=== PATIENT | male | born 1990 | race African-American/Black ===

== ENCOUNTER 2022-07-01 06:05 | Outpatient (REF) | payer OTHER, SELFPAY ==
--- NOTE | ~2022-07-01 | XR_ITS ---
EXAMINATION: XR SHOULDER, RIGHT CLINICAL INFORMATION: Pain. COMPARISON: None TECHNIQUE: AP external rotation, Grashey and scapula Y views of the right shoulder are submitted. FINDINGS: The bones and soft tissues are normal. No fracture. Glenohumeral and acromioclavicular alignment is anatomic with normal joint space. No abnormal soft tissue calcifications. XR/XR shoulder RT min 2V IMPRESSION: Normal right shoulder.
== END 2022-07-01 06:06 | disposition home or self-care (01) ==
LOC: HO.HOSX 06:05
PROVIDERS: Visit Provider Physician Assistant
DX: M25.311 Other instability, right shoulder (principal); M25.511 Pain in right shoulder
CPT/HCPCS: 73030; 99202

== ENCOUNTER 2022-07-23 09:41 | Outpatient (REF) | payer OTHER, SELFPAY ==
[2022-07-23 11:42] LABS: Appearance Urine Clear; Color Urine Yellow; Glucose Urine UA Negative (Negative); Leukocyte Esterase Urine Negative (Negative); Nitrite Urine Negative (Negative); Specific Gravity - Urine >= 1.030 (1.005-1.025); Urine Blood Negative (Negative); Urine Ketones Negative (Negative); Urine Protein Negative (Neg-Trace)
[2022-07-23 12:11] LABS: Alanine Aminotransferase 52 U/L (0-40); Albumin Level 4.2 g/dL (3.5-5.0); Alkaline Phosphatase 92 U/L (39-117); Anion Gap 11 (12-20); Aspartate Amino Transferase 33 U/L (5-37); Bilirubin Total 0.3 mg/dL (0.0-1.0); Blood Urea Nitrogen 16 mg/dL (9-16); Calcium 9.4 mg/dL (8.4-10.2); Carbon Dioxide 27 mmol/L (22-29); Chloride 108 mmol/L (96-108); Cholesterol 202 mg/dL; Estimated Glomerular Filt Rate > 60; Glucose Fasting 91 mg/dL (60-99); HDL Cholesterol 46 mg/dL; LDL Cholesterol Calculated 136 mg/dl; Potassium 4.7 mmol/L (3.3-5.1); Sodium 141 mmol/L (135-145); Total Protein 6.9 g/dL (6.5-8.0); Triglycerides 102 mg/dL
[2022-07-23 12:27] LABS: HBc Num1 0.06 S/CO (0.00-0.79); HBsAGNum1 0.25 S/CO (0.00-0.99); HIV AB/AG Nonreactive (Nonreactive); HIV Num 1 0.08 S/CO (0.00-0.99); Hepatitis B Core Antibody Nonreactive (Nonreactive); Hepatitis B Surface Antigen Negative (Negative); ~HepC Num1 0.07 S/CO (0.00-0.79); ~Hepatitis B Surface Antibody REACTIVE (Nonreactive); ~Hepatitis C Antibody Nonreactive (Nonreactive)
[2022-07-23 12:34] LABS: TSH reflex Free T4 0.69 uIU/mL (0.32-4.0)
[2022-07-24 08:29] LABS: Syphilis Screen Nonreactive (Nonreactive)
== END 2022-07-23 09:42 | disposition home or self-care (01) ==
LOC: HO.HMGCLDS 09:41
PROVIDERS: PCP Family Medicine; Visit Provider Family Medicine
DX: Z00.00 Encounter for general adult medical examination without abnormal findings (principal); Z11.3 Encounter for screening for infections with a predominantly sexual mode of transmission
CPT/HCPCS: 36415; 80053; 80061; 81003; 84443; 86704; 86706; 86780; 86803; 87340; 87389

== ENCOUNTER 2022-07-25 13:06 | Outpatient (REF) | payer OTHER, SELFPAY ==
--- NOTE | ~2022-07-25 | MR_ITS ---
EXAMINATION: MR SHOULDER WITH CONTRAST, RIGHT CLINICAL INFORMATION: Right shoulder pain. COMPARISON: X-rays of the right shoulder June 2022. TECHNIQUE: MRI of the shoulder was performed following the intra-articular administration of a dilute gadolinium-containing solution (arthrogram) on a high-field scanner. FINDINGS: Exam is slightly limited by image degrading motion artifact on multiple series. Repeat series were attempted without improvement. ROTATOR CUFF: Intact. No muscle atrophy or fatty infiltration. BICEPS: Normal. CORACOACROMIAL ARCH: The undersurface of the acromion is curved with no subacromial spur. Minimal arthrosis of the acromioclavicular joint. BURSA: Normal. LABRUM/CAPSULE: Normal. GLENOHUMERAL JOINT/MARROW: There is an eccentric defect/concavity along the posterior superior lateral aspect of the head tuberosity junction compatible with an old impaction fracture/Hill-Sachs lesion. This measures 14 mm transverse and 12 mm craniocaudal and up to 4 mm in depth. No surrounding edema. MR/MR shoulder RT w con IMPRESSION: 1. Gruver-Sachs lesion compatible with an old anterior shoulder dislocation which has been reduced. The anterior inferior labral ligamentous complex appears intact. 2. Minimal arthrosis of the acromioclavicular joint. 3. Rotator cuff intact.
--- NOTE | ~2022-07-25 | FL_ITS ---
EXAMINATION: XR ARTHROGRAM SHOULDER, RIGHT CLINICAL INFORMATION: Previous history of shoulder dislocation 2 years ago followed by constant right shoulder pain. COMPARISON: None TECHNIQUE: Following explaining fluoroscopy-guided right shoulder injection of gadolinium for MRI procedure, benefits and risk, a written consent was obtained. Patient was placed supine on fluoroscopy table and marker was placed along the right shoulder joint for needle insertion. The area marked was cleaned and draped in usual sterile manner. A 22-gauge spinal needle was then inserted from the skin into the mid glenohumeral joint space and 2 mL of nonionic contrast was injected. A single image was obtained for documentation. Subsequently 0.1 mL of gadolinium was dilated with 10 mL of saline and 1% lidocaine combination was injected and needle withdrawn. Postprocedure needle was withdrawn and complete hemostasis achieved at puncture site with sterile Band-Aid applied. Patient tolerated procedure extremely well. FINDINGS: There are no fractures or dislocations. No lytic or sclerotic process. There is mild cephalic migration of humeral head in relation to the acromion. There is iodinated contrast opacifying the glenohumeral joint space. FLUOROSCOPY TIME: 0.8 minutes. DOSE AREA PRODUCT: 3.679 uGy-m2 (microgray-meter squared) FL/FL arthrogram shoulder RT IMPRESSION: Successful fluoroscopically-guided right shoulder gadolinium injection for MRI. Patient was sent to MRI for further imaging.
== END 2022-07-25 13:07 | disposition home or self-care (01) ==
LOC: HO.XRAY 13:06
PROVIDERS: PCP Family Medicine; Visit Provider Physician Assistant
DX: M25.311 Other instability, right shoulder (principal)
CPT/HCPCS: 23350; 73040; 73222; A9585

== ENCOUNTER → 2022-07-29 13:44 | Outpatient (BNVA) | payer OTHER, SELFPAY | PROVIDERS: Visit Provider Physician Assistant | DX: M25.311 Other instability, right shoulder (principal) | CPT/HCPCS: 99212 ==

== ENCOUNTER 2022-07-30 11:00 | Outpatient (RCR) | payer OTHER, SELFPAY ==
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
== END 2022-10-17 07:51 | disposition home or self-care (01) ==
LOC: HO.PTWFD 11:00
PROVIDERS: PCP Family Medicine; Visit Provider Physician Assistant
DX: M25.511 Pain in right shoulder (principal)
CPT/HCPCS: 97110; 97161; 97535

== ENCOUNTER → 2023-01-09 14:05 | Outpatient (BNVA) | payer OTHER, SELFPAY | PROVIDERS: PCP Family Medicine; Visit Provider Physician Assistant | DX: M25.311 Other instability, right shoulder (principal) | CPT/HCPCS: 99212 ==

== ENCOUNTER 2023-01-09 14:37 | Emergency (ER) | payer OTHER, SELFPAY ==
[2023-01-09 14:47] VITALS: BP 143/87; PULSE 66; RESP 18; TEMP 36.8; O2SAT 99; BMI 29.4
--- NOTE | 2023-01-09 14:51 | ED_ITS ---
HPI - Ear Problem General Chief complaint: Ear Problems Stated complaint: l ear pain Time Seen by Provider: 01/09/23 14:51 Source: patient Mode of arrival: ambulatory Limitations: no limitations History of Present Illness HPI Narrative: 32-year-old male history of eustachian tube dysfunction, GERD presenting to the emergency complaints of severe left-sided ear pain patient reports that he recently got back from [facility] where he was swimming frequently, and when he got the plane his left ear popped, and since then he has been having severe pain. Denies tinnitus, fevers, chills, headache, vision changes, dizziness, weakness, nausea, vomiting, sore throat, upper respiratory symptoms. Related Data Previous Rx's Medication Instructions Recorded fluticasone propionate 50 1 spray intranasal Q12H 30 days 08/06/22 mcg/actuation nasal #16 grams spray,suspension (Flonase Allergy Relief) omeprazole 20 mg capsule,delayed 20 mg PO DAILY 30 days #30 caps 08/06/22 release ciprofloxacin 0.3 %-dexamethasone 4 drp otic (ears) BID 7 days #7.5 01/09/23 0.1 % ear drops,suspension mL (Ciprodex) doxycycline hyclate 100 mg capsule 100 mg PO BID 10 days #20 caps 01/09/23 Allergies Allergy/AdvReac Type Severity Reaction Status Date / Time Penicillins Allergy Mild Hives Verified 01/09/23 14:11 Review of Systems Review of Systems: Constitutional : No Weight loss, No Fever, No Chills, No Fatigue, No Malaise ENT/Mouth : No sore throat, No Rhinorrhea, + ear pain Eyes: No Eye Pain, No Swelling, No Redness Cardiovascular : No Chest Pain, No SOB, No Dyspnea on Exertion, No Orthopnea, No Edema, No Palpitations Respiratory : No Cough, No Sputum, No Wheezing Gastrointestinal : No Nausea, No Vomiting, No Diarrhea, No Constipation, No abdominal Pain, No Hematochezia, No Melena Genitourinary : No Dysuria, No Urinary Frequency, No Hematuria, Musculoskeletal : No joint pain, No Myalgias, No Joint Swelling Skin : No Skin Lesions, No rash Neuro : No Weakness, No Numbness, No Dizziness, No Headache Psych : No Anxiety/Panic, No Depression All other systems reviewed and are negative Yes all other systems are reviewed and are negative [facility] Past Medical History Attestation statement: The following information was validated with the patient. Source: old records reviewed and nursing notes reviewed Family History Family History Maternal Grandmother Mental health disorder Social History Social History Housing: House Patient Tobacco Use Status: Never used Tobacco Tobacco use type: Cigarette e-Cigarette/Vaping Use: Never Used service: No Current occupational status: employed Cognitive needs: No Hearing needs: No Vision needs: No Physical Exam Vital Signs: Vital Signs: Last Vital Signs Temp 98.2 F 01/09/23 14:47 Pulse 66 01/09/23 14:47 Resp 18 01/09/23 14:47 BP 143/87 H 01/09/23 14:47 Pulse Ox 99 01/09/23 14:47 O2 Del Method Room Air 01/09/23 14:47 BMI result Body Mass Index 29.4 vss Appearance: Alert.? Oriented X3.? No acute distress.? Head: Normocephalic, atraumatic, no step-offs or deformities Eyes: Pupils equal, round and reactive to light.? ENT: Pharynx normal.? Left ear with erythematous and edematous ear canal, difficult to visualize the tympanic membrane, decent amount of cerumen in left ear. pain with manipulation of left ear externally. No mastoid tenderness. Normal right ear. Neck: Normal inspection.? Neck supple.? CVS: Normal heart rate and rhythm.? Pulses normal.? Respiratory: No respiratory distress.? Breath sounds normal.? Abdomen: Soft and nontender.? Skin: Skin warm and dry.? Normal skin color.? Normal skin turgor.? Extremities: No lower extremity edema.? No calf ttp. 5/5 strength to bilateral upper and lower extremities Back: No midline tenderness, no C-spine tenderness, full range of motion, no CVA tenderness bilaterally Neuro: Oriented X 3.? No motor deficit.? No sensory deficit. CN 2-12 intact Medical Decision Making Medical Decision Making [facility] Narrative: 1454 32-year-old male presents with left ear pain reports recent travel in swimming. Physical exam significant for Left ear with erythematous and edematous ear canal, difficult to visualize the tympanic membrane, decent amount of cerumen in left ear. pain with manipulation of left ear externally. No mastoid tenderness. Normal right ear. concerns for otitis media, otitis externa and ruptured tympanic membrane. Difficult to visualize ruptured tympanic membrane however will err on the side of caution and treat, patient does have a penicillin allergy therefore will treat with doxycycline as this is 2nd line treatment for ruptured tympanic membrane. Will give Ciprodex drops due to the inflammation visualized in the ear canal. No signs of malignant otitis or mastoiditis. Plan discharge patient home from triage will send him home on doxycycline and Ciprodex drops. Differential Diagnosis Differential Diagnoses: The differential diagnosis associated with the presentation includes concerns for otitis media, otitis externa and ruptured tympanic membrane. Difficult to visualize ruptured tympanic membrane however will err on the side of caution and treat, patient does have a penicillin allergy therefore will treat with doxycycline as this is 2nd line treatment for ruptured tympanic membrane. Will give Ciprodex drops due to the inflammation visualized in the ear canal. No signs of malignant otitis or mastoiditis. Admission/Observation Consideration of admission/observation: Escalation of care including admission/observation considered not indicated Core Measures AMI core measures followed: Yes Measure exclusions: not indicated Critical Care Time Critical Care Time Critical Care Time: No Discharge Plan Discharge Clinical Impression: Otitis media, Otitis externa Patient Disposition: Home, Self-Care Instructions: Ear Infection (ED) Additional Instructions: Take your medications as prescribed. If you were prescribed antibiotics today, it is important that you take your medication to their entirety, do not skip any doses, do not finish them early. Follow-up with your primary care provider this week. Follow-up with ears Nose and Throat Return to the emergency department with new or worsening symptoms. Such as fevers, chills, chest pain, shortness of breath, nausea, vomiting, dizziness, headache, vision changes, lethargy In case of emergency call 911 Prescriptions: New doxycycline hyclate 100 mg capsule 100 mg PO BID 10 Days Qty: 20 0RF ciprofloxacin-dexamethasone [Ciprodex] 0.3-0.1 % drops,suspension 4 drp otic (ears) BID 7 Days Qty: 7.5 0RF No Action fluticasone propionate [Flonase Allergy Relief] 50 mcg/actuation spray,suspension 1 spray intranasal Q12H 30 Days Qty: 16 3RF Rx Instructions: administer into each nostril omeprazole 20 mg capsule,delayed release(DR/EC) 20 mg PO DAILY 30 Days Qty: 30 2RF Referrals: Herbie Braswell MD [Primary Care Provider] - 2 days Herminio Verde [Physician] - 2 days Stand Alone Forms: Work/School Release Interventions: ED Discharge Assessment Last Done: 01/09/23 15:00 Discharge Date/Time: 01/09/23 15:01
== END 2023-01-09 15:01 | disposition home or self-care (01) ==
LOC: HO.ED 15:00
PROVIDERS: Emergency Provider Student in an Organized Health Care Education/Training Program; PCP Family Medicine
DX: H66.92 Otitis media, unspecified, left ear (principal); H60.92 Unspecified otitis externa, left ear
CPT/HCPCS: 99282; 99283

== ENCOUNTER 2023-03-13 09:31 | Outpatient (AMB) | payer OTHER, SELFPAY ==
--- NOTE | 2023-03-13 09:34 | A.OFFVIS_ITS ---
Intake Vital Signs 03/13/23 09:39 Height 5 ft 11 in Weight 211 lb BMI 29.4 Intake Visit Reasons: Pre-Op RT SHLD CAP.PLI. 03/26/23 NE Intake Note: Dominic 32 yr old male presents today for his pre op visit for his right shoulder schedule for 03/26/23. Pain management agreement signed and reviewed. Allergies Penicillins Allergy (Mild, Verified 03/13/23 09:50) Hives HPI Pre-Op RT SHLD CAP.PLI. 03/26/23 NE HPI Details 32-year-old right hand dominant male who presents in the office today for his preoperative history and physical exam prior to a right shoulder arthroscopy with capsular plication to be performed on 03/26/[address] Alexander. Patient has an allergy history, as follows: -Penicillin; hives Patient is currently taking, as follows: -Fluticasone propionate 50 mcg/actuation 1 spray intranasal Q12H -Omeprazole 20 mg PO daily Patient has a medical history, as follows: -Eustachian tube dysfunction -GERD Patient has no known surgical history. Patient has a social history, as follows: -Tobacco; cigarettes PFSH Family History Maternal Grandmother Mental health disorder Social History Housing: House Patient Tobacco Use Status: Never used Tobacco Tobacco use type: Cigarette e-Cigarette/Vaping Use: Never Used service: No Current occupational status: employed Cognitive needs: No Hearing needs: No Vision needs: No Review of Systems Const All systems reviewed & are unremarkable except as noted in HPI and below Physical Exam Vital Signs: BMI result Body Mass Index 29.4 Const General: cooperative and no acute distress Orientation/consciousness: patient oriented x3 Neck Neck: Yes normal visual inspection and Yes no lymphadenopathy Resp Effort & Inspection: normal respiratory effort and able to speak in complete sentences Cardio Rate: regular rate Peripheral pulses: Peripheral pulses 2+ throughout GI Inspection: Yes normal to inspection Palpation (GI): Soft to palpation Skin General skin exam: no rashes or lesions noted Lesions: no lesions Rashes: no rashes Neuro General: patient oriented x3 Extrem Other: Right shoulder: Normal to inspection. No ecchymosis, erythema, or edema. Full shoulder ROM in all planes. Negative sulcus sign. Negative cross-body reach. Neg ative empty can. Negative drop arm. Discomfort with O?Briens. Anterior shoulder pain with crank test. NVI. Psych Mental Status: mental status grossly normal Assessment & Plan Assessment & Plan (1) Instability of right shoulder joint: Code(s): M25.311 - Other instability, right shoulder Plan Mr. Vasquez is a 32-year-old right hand dominant male who presents in the office today for his preoperative history and physical exam prior to a right shoulder arthroscopy with capsular plication to be performed on 03/26/[address] Alexander. Patient has an allergy history, as follows: -Penicillin; hives Patient is currently taking, as follows: -Fluticasone propionate 50 mcg/actuation 1 spray intranasal Q12H -Omeprazole 20 mg PO daily Patient has a medical history, as follows: -Eustachian tube dysfunction -GERD Patient has no known surgical history. Patient has a social history, as follows: -Tobacco; cigarettes I discussed in detail the procedure and what to expect pre and post operatively. We discussed the risks, benefits and alternatives to the surgery as well as the rehabilitation course. The risks; which include, but are not limited to infection, bleeding, nerve injury, ongoing pain, swelling, and stiffness, perioperative risk of injury to bones and soft tissues, and blood clots. I have answered all questions and with their understanding they have consented to move forward with a right shoulder arthroscopy to be performed on 03/26/[address] Norberto Alexander. Follow up will be at the post operative appointment on 03/31/2023 at 8:45 am, or sooner if needed. The patient has his brother and sister on file to call after the surgery. He states his sister, Madelin, will be picking him up after surgery. Patient Instructions: Scribed for Halima Hidalgo PA-C by Alexandra Delgado medical and scientific illustrator, on 03/13/2023 at 9:32 am, EST. Your attestation Coding Level of Care Code Global (35635) Diagnoses Instability of right shoulder joint M25.311
[2023-03-13 09:39] VITALS: BMI 29.4
== END 2023-03-13 10:35 | disposition home or self-care (01) ==
LOC: HO.HOS 09:31
PROVIDERS: PCP Family Medicine; Visit Provider Physician Assistant
DX: M25.311 Other instability, right shoulder (principal)
CPT/HCPCS: 99024

== ENCOUNTER → 2023-03-13 09:31 | Outpatient (BNVA) | payer OTHER, SELFPAY | PROVIDERS: PCP Family Medicine; Visit Provider Physician Assistant ==

== ENCOUNTER 2023-03-26 07:25 | Day surgery (SDC) | payer OTHER, SELFPAY ==
[2023-03-24 10:08] VITALS: BMI 29.4
[2023-03-26] VITALS (7 sets, daily range): BP systolic 134–149; BP diastolic 89–97; PULSE 49–60; RESP 14–18; TEMP 36.1–36.8; O2SAT 96–99; BMI 29.3
--- NOTE | 2023-03-26 07:51 | P.CONAN_ITS ---
HPI - Anesthesia Eval Consult details Narrative: right shoulder surgery today, drank clear water at 7 am [facility] Active Problems Active Problems: All Active Problems (Updated 01/10/23 @ 00:09 by Michele Carter) Headache (Acute) Motion sickness (Acute) Difficulty sleeping (Acute) Laboratory exam ordered as part of routine general medical examination (Acute) Right shoulder pain (Acute) Shoulder dislocation (Acute) Hair loss (Acute) Instability of right shoulder joint (Acute) Elevated transaminase level (Acute) Elevated LDL cholesterol level (Acute) Adult general medical exam (Acute) GERD (gastroesophageal reflux disease) (Acute) Eustachian tube dysfunction (Acute) Family History Family History Maternal Grandmother Mental health disorder Family history of problems with anesthesia: No Surgical History Surgical History No pertinent past surgical history History of Problems with Anesthesia: Yes (ponv) Social History Social History Housing: House Patient Tobacco Use Status: Current everyday Tobacco user Tobacco use type: Cigarette Cigarettes Per Day: 4 Years Smoked: 7 Smoked in Last 30 Days: Yes e-Cigarette/Vaping Use: Never Used Use of substances other than those prescribed or required for medical reasons: No Are you DNR?: No Advance Directives: No Advance Directives Information Provided: Yes service: No Current occupational status: employed Cognitive needs: No Hearing needs: No Vision needs: No Meds Allergies Allergy/AdvReac Type Severity Reaction Status Date / Time Penicillins Allergy Mild Hives Verified 03/26/23 07:33 Active Medications: Current Medications Clindamycin Phosphate (Cleocin) 900 mg in 50 mls @ 50 mls/hr IV PREOP ONE Stop: 03/26/23 08:26 Lactated Ringer's (Lr) 1,000 mls @ 100 mls/hr IVCONT .Q10H [facility] Home Medications Medication Instructions Recorded Confirmed Last Taken Type No Known Home Meds 03/26/23 03/26/23 Unknown History Exam Exam Date and Time: March 26, 2023 0751 Height,Weight and Vital Signs: Height 5 ft 11 in Weight 95.254 kg Last Vital Signs Temp 98.3 F 03/26/23 07:41 Pulse 60 03/26/23 07:41 Resp 16 03/26/23 07:41 BP 147/89 H 03/26/23 07:41 Pulse Ox 99 03/26/23 07:41 O2 Del Method Room Air 03/26/23 07:41 Airway Mallampati Class: II TM Dist: >3cm Neck ROM: Full Heart: rrr Lungs: cta Assessment and Plan Assessment Anesthesia Assessment: Anesthesia Plan Discussed Final Anesthetic Review Family History of Problems with Anesthesia: No History of Problems with Anesthesia: Yes (ponv) NPO: Yes ASA Class: II Final Preanesthetic Review: No Changes in Pt Med Stat, Meds/Allgs Chart Reviewed, Consent Obtained/Reviewed and Anes Risks/Benef Reviewed Patient Risk: Low Procedure Risk: Low Anesthetic Plan Anesthetic Plan: GA and Regional Block Disposition: Standard PACU
[2023-03-26] MEDS: Lactated Ringers 1,000 ML 100 ML IVCONT (08:12)
--- NOTE | 2023-03-26 10:37 | PM.OP ---
Brief Operative Note Date of Service: 03/26/23 Pre-op diagnosis: right shoulder instability Post-op diagnosis: other (1) Right shoulder instability 2) Right shoulder SLAP tear ) Procedure: Capsular plication right shoulder and debridement superior labrum Implants: Malone and nephLevanta micro-raptor 2.7 x 4 Surgeon: Norberto Alexander MD Anesthesia: GETA and regional Was an International Marketing Executive used for this Procedure?: Yes International Marketing Executive: Halima Hidalgo Estimated blood loss (mL): 5 IV fluids (mL): 750 Pathology: none sent Condition: stable Disposition: PACU
--- NOTE | 2023-03-28 16:26 | P.OP_ITS ---
Operative Note Operative Note Date of Service: 03/26/23 Narrative: Date of Service: 03/26/23 Pre-op diagnosis: right shoulder instability Post-op diagnosis: other (1) Right shoulder instability 2) Right shoulder SLAP tear ) Procedure: Capsular plication right shoulder and debridement superior labrum Implants: Malone and nephew micro-raptor 2.7 x 4 Surgeon: Norberto Alexander MD Anesthesia: GETA and regional Was an Comparative Sociology Professor used for this Procedure?: Yes Comparative Sociology Professor: Halima Hidalgo Estimated blood loss (mL): 5 IV fluids (mL): 750 Pathology: none sent Condition: stable Disposition: PACU Procedure in detail: Patient was brought to the operating room and placed the the beach chair posi tion. All bony prominences were well padded and the limb was prepped and draped in standard sterile fashion. A time out was called to identify proper site, proper procedure and proper surgeon. IV antibiotics per weight were administered. I began by making a posterolateral stab incision with a 15 blade. A blunt trochar was placed into the glenohumeral joint and I insufflated the joint with saline and a 30 degree arthroscope was placed. I established an outside- in anterior portal just distal to the biceps tendon. I then began my inspection of the glenohumeral joint. There was min G 1 cartilage changes of the reji-inferior glenoid. The subscapularis was intact and there was no under- surface RTC tearing. There was mild fraying of the biceps with associated mild degenerative tearing of the labrum superiorly. There was a postive drive through sign. I debrided the labrum. I then debrided the anterior glenoid neck and passed a suture through the reji-inferior capsule and labrum and the 5 o'clock position. I placed a 2.7 mm micro-raptor at the anterior glenoid rim and tightened the reji-inferior capsule and labrum creating a nice bumper effect. I then repeated this process at 4 and 3 o'clock positions. I was satisfied with the plication and the labral repair. There was no longer a + drive though. I then removed all instrumentation and took my final pictures. Portals were closed with nylon. Patient was placed in an abduction sling, extubated and brought to the recovery room in stable condition. There were no known complications.
== END 2023-03-26 12:38 | disposition home or self-care (01) ==
PROVIDERS: PCP Family Medicine; Visit Provider Orthopaedic Surgery
PROC: (CPT 29805; principal; 2023-03-26 09:40)
DX: S43.431A Superior glenoid labrum lesion of right shoulder, initial encounter (principal); X58.XXXA Exposure to other specified factors, initial encounter; Y93.9 Activity, unspecified; Y92.9 Unspecified place or not applicable; Y99.9 Unspecified external cause status; M25.311 Other instability, right shoulder; M25.511 Pain in right shoulder; K21.9 Gastro-esophageal reflux disease without esophagitis; Z79.899 Other long term (current) drug therapy; Z88.0 Allergy status to penicillin; F17.210 Nicotine dependence, cigarettes, uncomplicated
CPT/HCPCS: 29806; 29822; J0171; J1100; J2250; J2371; J2405; J2795

== ENCOUNTER → 2023-03-26 07:25 | Outpatient (BNV) | payer OTHER, SELFPAY | PROVIDERS: PCP Family Medicine; Visit Provider Orthopaedic Surgery | DX: S43.431A Superior glenoid labrum lesion of right shoulder, initial encounter (principal); M25.311 Other instability, right shoulder | CPT/HCPCS: 29807; 29999 ==

== ENCOUNTER 2023-03-31 08:50 | Outpatient (AMB) | payer OTHER, SELFPAY ==
--- NOTE | 2023-03-31 08:52 | A.OFFVIS_ITS ---
Intake Vital Signs 03/31/23 08:56 Height 5 ft 10 in Weight 210 lb BMI 30.1 Intake Visit Reasons: Post-Op RT SHLD CAP.PLI. 03/26/23 NE Intake Note: Dominic 32 yr old male presents today for his 1st P/O visit for his Capsular plication of right shoulder and debridement superior labrum from 03/26/23. States he is having mild pain. Currently pain is 3/10 with pain medication. Allergies Penicillins Allergy (Mild, Verified 03/31/23 08:57) Hives HPI Post-Op RT SHLD CAP.PLI. 03/26/23 NE HPI Details 32-year-old male who returns to the office today for post-op right shoulder capsular plication and debridement of superior labrum, 03/26/[address] Alexander. He continues to have mild pain in his shoulder and rates the pain as 3 on the scale of 0-10. He is taking his pain medication as instructed. He is doing well overall and has no concerns today. [facility] Surgical History No pertinent past surgical history Family History Maternal Grandmother Mental health disorder Social History Housing: House Patient Tobacco Use Status: Current everyday Tobacco user Tobacco use type: Cigarette Cigarettes Per Day: 4 Years Smoked: 7 e-Cigarette/Vaping Use: Never Used service: No Current occupational status: employed Cognitive needs: No Hearing needs: No Vision needs: No Review of Systems Const All systems reviewed & are unremarkable except as noted in HPI and below Physical Exam Vital Signs: BMI result Body Mass Index 30.1 Extrem Other: Right shoulder: Incision clean, dry and intact. No erythema mild soft tissue swelling. No drainage from the incisions. NVI. Assessment & Plan Assessment & Plan (1) Shoulder dislocation: Code(s): S43.006A - Unspecified dislocation of unspecified shoulder joint, initial encounter (2) Instability of right shoulder joint: Code(s): M25.311 - Other instability, right shoulder Plan Patient will begin physical therapy on April 03 to work on ROM and periscapular stabilization, no strengthening. He will continue to wear the sling until 6 weeks postop. He will see us back in 4 weeks, sooner if needed. Orders: Orders PT Evaluation and Treatment Today M25.311 - Other instability, right shoulder, S43.006A - Unspecified dislocation of unspecified shoulder joint, initial encounter Medications: New acetaminophen 650 mg (2 x 325 mg) PO Q4-6H PRN 240 tabs 3RF fever or pain 1 month ibuprofen 800 mg PO Q8H PRN 90 tabs 3RF pain 30 days S52.209D - Unspecified fracture of shaft of unspecified ulna, subsequent encounter for closed fracture with routine healing Patient Instructions: Scribed for Kita Cosme PA-C, by Ced Stallworth nuclear medical technologist, on 03/31/2023 at 8:45 AM EST. IKita PA-C, have personally reviewed and agree with the information entered by the scribe. Coding Level of Care Code Global (69996) Diagnoses Shoulder dislocation S43.006A Instability of right shoulder joint M25.311
[2023-03-31 08:56] VITALS: BMI 30.1
== END 2023-03-31 09:13 | disposition home or self-care (01) ==
PROVIDERS: PCP Family Medicine; Visit Provider Physician Assistant
DX: S43.006A Unspecified dislocation of unspecified shoulder joint, initial encounter (principal); M25.311 Other instability, right shoulder
CPT/HCPCS: 99024

== ENCOUNTER → 2023-03-31 08:50 | Outpatient (BNVA) | payer OTHER, SELFPAY | PROVIDERS: PCP Family Medicine; Visit Provider Physician Assistant ==

== ENCOUNTER 2023-05-01 13:19 | Outpatient (AMB) | payer OTHER, SELFPAY ==
[2023-05-01 13:24] VITALS: BMI 30.1
--- NOTE | 2023-05-01 13:24 | MHC.OFFVIS ---
Intake Vital Signs 05/01/23 13:24 Height 5 ft 10 in Weight 210 lb BMI 30.1 Intake Visit Reasons: RT SHLD CAP.PLI. 03/26/23 NE Intake Note: Dominic is a 32 year old male who presents today for a post operative appointment s/p Capsular plication of right shoulder and debridement superior labrum from 03/26/23. States he is doing well. Reports he is working with P.T and has questions about his ROM. Allergies Penicillins Allergy (Mild, Verified 05/07/23 13:32) Hives HPI RT SHLD CAP.PLI. 03/26/23 NE HPI Details Dominic is a 32 year old man who presents ~1 month S/P right shoulder capsular plication & superior labrum debridement. He says he is doing well and denies any pain. He has been working with PT, which he says is going well, and he has questions about his ROM limitations, especially his external rotation. He is worried about if his shoulder will dislocate again if he pushed too far. 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 [facility] Medical History (Updated 05/07/23 @ 13:52 by Jean Claude Leary CNP) No pertinent past medical history Surgical History No pertinent past surgical history Family History Maternal Grandmother Mental health disorder Social History Housing: House Patient Tobacco Use Status: Current everyday Tobacco user Cigarettes Per Day: 4 Years Smoked: 7 e-Cigarette/Vaping Use: Never Used service: No Current occupational status: employed Current occupation: DCF worker at [employer] Cognitive needs: No Hearing needs: No Vision needs: Yes Review of Systems Const All systems reviewed & are unremarkable except as noted in HPI and below Physical Exam Vital Signs: BMI result Body Mass Index 30.1 Const General: no acute distress, alert and awake Orientation/consciousness: patient oriented x3 HEENT Head: Yes normocephalic and Yes atraumatic Eyes EOM: EOMs intact bilaterally Resp Effort & Inspection: normal respiratory effort and able to speak in complete sentences Cardio Jugular venous distension: no JVD Skin General skin exam: turgor normal Rashes: no rashes Neuro General: patient oriented x3 Extrem Other: Right Shoulder: Incision C/D/I 0 degrees ER 90 degrees FF Psych Appearance: grossly normal Affect: normal affect Attitude: cooperative Assessment & Plan Assessment & Plan (1) Status post arthroscopy of right shoulder: Code(s): Z98.890 - Other specified postprocedural states Plan: This is a 32 year old man S/P right shoulder capsular plication with superior labral debridement, DOS: 03/26/23. This was due to shoulder instability & a hx of dislocations. He is doing well, without pain, and has been working with PT. He continues to wear his sling as instructed. I recommend he continue to work with therapy and to not push through pain. He can discontinue his sling and should limit his ER, I ordered a new course of PT with instructions for no painful ER. He will avoid any overhead, lifting, or behind back activities. He will follow up in 6 weeks. He was given a note to remain out of work until at least his next follow-up. (2) Instability of right shoulder joint: Code(s): M25.311 - Other instability, right shoulder Plan Scribed for Norberto Alexander MD by Kevin Brewer, medical reimbursement manager, on 05/01/23 at 1:45 PM, EST. Coding Level of Care Code Global (83530) Diagnoses Status post arthroscopy of right shoulder Z98.890 Instability of right shoulder joint M25.311
== END 2023-05-01 13:58 | disposition home or self-care (01) ==
PROVIDERS: PCP Family Medicine; Visit Provider Orthopaedic Surgery
DX: Z98.890 Other specified postprocedural states (principal); M25.311 Other instability, right shoulder
CPT/HCPCS: 99024

== ENCOUNTER → 2023-05-01 13:19 | Outpatient (BNVA) | payer OTHER, SELFPAY | PROVIDERS: PCP Family Medicine; Visit Provider Orthopaedic Surgery ==

== ENCOUNTER 2023-05-07 12:50 | Outpatient (AMB) | payer OTHER, SELFPAY ==
[2023-05-07 13:08] VITALS: BP 124/64; PULSE 79; RESP 12; TEMP 36.4; O2SAT 99; BMI 29.6
--- NOTE | 2023-05-07 13:08 | A.OFFPC_ITS ---
Vital Signs 05/07/23 13:08 Height 5 ft 10 in Weight 206 lb 2 oz BMI 29.6 BP 124/64 Blood Pressure Location Lt brachial Position Sitting Respiration 12 Pulse 79 Pulse Source Pulse Oximeter Temp 97.5 F Temp Source Temporal Artery Scan Pulse Oximetry (%) 99 Oxygen Delivery Method Room Air Intake Visit Reasons: Shoulder Surgery 03/26/23, Rash Intake Note: Patient states he had surgery done on 03/26/23 on right shoulder to repair rotator cuff. Patient would like a referral to Dermatology as well. Patient would also like a ophthalmology referral. [employer] Machined Parts Required: No Accompanied by: Self / Same As Patient Allergies Penicillins Allergy (Mild, Verified 05/07/23 13:32) Hives Medication List - Last Reconciled 05/07/23 by Jean Claude Leary CNP acetaminophen 650 mg (2 x 325 mg) PO Q4-6H PRN 1 month Tobacco use date assessed: 08/06/22 Dental Screening Dental Screen Date: 05/07/23 Did you have a dental visit in the last 12 months?: Yes Did you have a dental problem in the last 6 months where you did not have access to dental care?: No Was dental information given to patient?: Patient has dentist HPI HPI Comments History of Present Illness Details 32-year-old male presents with complaint s itchy rash to both groin. He notes that rash has been present for the past 2-3 months. Multiple OTC remedies have failed. He has not tried an antifungal cream. He states he underwent surgery to repair his right rotator cuff on 03/26/2023 and currently doing PT with significant improvement. No pain no acute symptoms. [facility] Medical History (Updated 05/07/23 @ 13:52 by Jean Claude Leary CNP) No pertinent past medical history Surgical History No pertinent past surgical history Family History Maternal Grandmother Mental health disorder Social History Housing: House Patient Tobacco Use Status: Current everyday Tobacco user Cigarettes Per Day: 4 Years Smoked: 7 e-Cigarette/Vaping Use: Never Used service: No Current occupational status: employed Current occupation: DCF worker at [employer] Cognitive needs: No Hearing needs: No Vision needs: Yes Questionnaire Thrive Questionnaire Date Thrive assessed: 05/28/22 JONO-7 AMB Questionnaire JONO-7 Date JONO - 7 assessed: 05/28/22 Source: Developed by Drs. Srinivasan Shepard, Valorie Arthur, Mac Stoddard and colleagues, with an educational renee from [employer]. Review of Systems Const Details: Const Denies chills, Denies fatigue, Denies fever(s), Denies headache(s) and Denies weakness ENT Denies dizziness and Denies headache(s) Card Denies chest pain, Denies lightheadedness, Denies dyspnea and Denies other (Palpitations) Resp Denies cough, Denies dyspnea, Denies wheezing and Denies other ( shortness of breath) GI Denies abdominal pain, Denies melena, Denies hematochezia, Denies change in bowel habits, Denies dyspepsia and Denies nausea Denies hematuria and Denies dysuria Musc Denies abnormal gait, Denies myalgias, Denies arthralgias, Denies numbness and Denies tingling Skin/Breast Reports as per HPI Neuro Denies abnormal gait, Denies dizziness, Denies headache(s), Denies memory loss, Denies numbness, Denies Sensory deficit (Neuro), Denies tingling and Denies weakness Psych Denies anxiety, Denies depression, Denies memory loss Endo Denies cold intolerance, Denies fatigue, Denies heat intolerance, Denies polydipsia and Denies polyuria Aller/Immun Denies wheezing Physical exam (Primary Care) Vital Signs: Last Vital Signs Temp 97.5 F 05/07/23 13:08 Pulse 79 05/07/23 13:08 Resp 12 05/07/23 13:08 BP 124/64 05/07/23 13:08 Pulse Ox 99 05/07/23 13:08 Oxygen Delivery Method Room Air 05/07/23 13:08 BMI result Body Mass Index 29.6 Tobacco/Smoking Status: Tobacco use Status Tobacco use date assessed 08/06/22 05/07/23 13:21 Patient Tobacco Use Status Current everyday Tobacco 05/07/23 13:21 Tobacco use type 05/07/23 13:21 e-Cigarette/Vaping Use Never Used 05/07/23 13:21 Thrive Assessment: Date of Thrive Assessment Date Thrive assessed 05/28/22 05/07/23 13:21 Const Other: General: no acute distress and well developed Nutritional Appearance: well nourished Orientation/consciousness: patient oriented x3 [facility] Head: Yes normocephalic and Yes atraumatic Eyes General: appearance normal, both eyes and all related structures Pupils: Equal, round and reactive pupils present EOM: EOMs intact bilaterally Resp Effort & Inspection: normal respiratory effort Auscultation: clear to auscultation bilaterally Cardio Rate: regular rate Rhythm: regular rhythm Heart sounds: S1 normal heart sound present, S2 normal heart sound present, no gallops, no murmurs and no rubs GI Palpation (GI): No Abdominal aortic bruit present, Soft to palpation, nontender, No hepatosplenomegaly present and No Rebound tenderness present Auscultation: normal bowel sounds General: Yes no CVA tenderness Back/Spine/Pelvis Back: no CVA tenderness Cervical Spine: cervical ROM normal and No Cervical spine tenderness Thoracic/Lumbar Spine: thoraco-lumbar ROM normal, No pain with thoraco-lumbar ROM, No thoracic spinal tenderness and No lumbar spinal tenderness Extrem General: Yes normal to inspection, No edema and No calf tenderness Skin General: warm and dry. Normal skin color. Normal skin turgor Lesions: no lesions Rashes: Hyperpigmentation of the skin to both groins, skin is intact, no discharge or erythema Trauma: no lacerations or abrasions Wounds: no wounds Nails: normal Neuro General: patient oriented x3, gait normal and no focal neuro deficit Cranial nerves: Yes Equal, round and reactive pupils present Cognition (Neuro): normal cognition Gait exam (Neuro): Normal gait present Sensory Exam: No Sensory deficit (Neuro) Psych Appearance: grossly normal Affect: normal affect Attitude: cooperative Thought process: Normal thought process present Assessment and Plan Assessment & Plan (1) Tinea cruris: Code(s): B35.6 - Tinea cruris Plan: Hyperpigmentation of the skin to both groins, skin is intact, no discharge or erythema Likely tinea cruris Clotrimazole cream ordered. Use as prescribed Return with worsening or new signs and symptoms Verbalized understanding and agreed with treatment plan. Medications: New clotrimazole 1% 1 appl topical BID 2 weeks 30 grams 0RF Coding Level of Care Code Est Pt Level 3 (70457) Diagnoses Tinea cruris B35.6
== END 2023-05-07 13:52 | disposition home or self-care (01) ==
PROVIDERS: PCP Family Medicine; Visit Provider Nurse Practitioner Family
DX: B35.6 Tinea cruris (principal)
CPT/HCPCS: 99213

== ENCOUNTER 2023-06-09 10:51 | Outpatient (AMB) | payer OTHER, SELFPAY ==
[2023-06-09 10:59] VITALS: BP 120/72; PULSE 56; O2SAT 98; BMI 29.7
--- NOTE | 2023-06-09 10:59 | MHC.PC.OV ---
Vital Signs 06/09/23 10:59 Height 5 ft 10 in Weight 207 lb BMI 29.7 BP 120/72 Blood Pressure Location Lt brachial Position Sitting Pulse 56 Pulse Source Pulse Oximeter Pulse Oximetry (%) 98 Oxygen Delivery Method Room Air Intake Visit Reasons: hair loss Intake Note: Patient is here with concern of hair loss, and would like a derm referral to look into it. Allergies Penicillins Allergy (Mild, Verified 06/09/23 11:03) Hives Tobacco use date assessed: 06/09/23 Dental Screening Dental Screen Date: 06/09/23 Did you have a dental visit in the last 12 months?: Yes Did you have a dental problem in the last 6 months where you did not have access to dental care?: No Was dental information given to patient?: Patient has dentist HPI hair loss HPI Details 32 y/o male presents today with complaints of hair loss. He is requesting a dermatology referral. He notes he has had hair loss since he was in his 20s. [facility] Medical History No pertinent past medical history Surgical History H/O shoulder surgery No pertinent past surgical history Family History Maternal Grandmother Mental health disorder Social History Housing: House Patient Tobacco Use Status: Current everyday Tobacco user Cigarettes Per Day: 4 Years Smoked: 7 e-Cigarette/Vaping Use: Never Used service: No Current occupational status: employed Current occupation: DCF worker at [employer] Cognitive needs: No Hearing needs: No Vision needs: Yes Questionnaire Thrive Questionnaire Date Thrive assessed: 05/28/22 JONO-7 AMB Questionnaire JONO-7 Date JONO - 7 assessed: 05/28/22 Source: Developed by Drs. Srinivasan Shepard, Valorie Arthur, Mac Stoddard and colleagues, with an educational renee from [employer]. Physical exam (Primary Care) Vital Signs: Last Vital Signs Pulse 56 06/09/23 10:59 BP 120/72 06/09/23 10:59 Pulse Ox 98 06/09/23 10:59 Oxygen Delivery Method Room Air 06/09/23 10:59 BMI result Body Mass Index 29.7 Tobacco/Smoking Status: Tobacco use Status Tobacco use date assessed 06/09/23 06/09/23 11:09 Patient Tobacco Use Status Current everyday Tobacco 06/09/23 11:09 Tobacco use type 05/07/23 13:50 e-Cigarette/Vaping Use Never Used 06/09/23 11:09 Thrive Assessment: Date of Thrive Assessment Date Thrive assessed 05/28/22 06/09/23 11:09 Assessment and Plan Assessment & Plan (1) Hair loss: Code(s): L65.9 - Nonscarring hair loss, unspecified Plan: Trial?minoxidil-finasteride Referred?to?dermatology?as?per?patient?request Orders: Referrals Dermatology Referral L65.9 - Nonscarring hair loss, unspecified Medications: New minoxidil-finasteride 5-0.1 % 2 mL topical DAILY 60 mL 2RF 30 days Coding Level of Care Code Est Pt Level 3 (41846) Diagnoses Hair loss L65.9
== END 2023-06-09 11:15 | disposition home or self-care (01) ==
PROVIDERS: PCP Family Medicine; Visit Provider Family Medicine
DX: L65.9 Nonscarring hair loss, unspecified (principal)
CPT/HCPCS: 99213

== ENCOUNTER 2023-06-16 11:51 | Outpatient (AMB) | payer OTHER, SELFPAY ==
--- NOTE | 2023-06-16 11:58 | MHC.OFFVIS ---
Intake Intake Visit Reasons: P.O RT SHLD CAP.PLI. 03/26/23 NE Intake Note: Dominic is a 32 year old male who presents today for a post operative appointment s/p Capsular plication of right shoulder and debridement superior labrum from 03/26/23. Last visit her was instructed to remain out of work, avoid any overhead and behind the back activity. Allergies Penicillins Allergy (Mild, Verified 06/16/23 12:00) Hives HPI P.O RT SHLD CAP.PLI. 03/26/23 NE HPI Details Dominic is a 32 year old man who presents ~11 weeks S/P right shoulder capsular plication & superior labrum debridement. He says he is doing well and denies any pain. He has been working with PT, which he says is going well, and he wants to know if he can return to work. 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 [facility] Medical History No pertinent past medical history Surgical History H/O shoulder surgery No pertinent past surgical history Family History Maternal Grandmother Mental health disorder Social History Housing: House Patient Tobacco Use Status: Current everyday Tobacco user Cigarettes Per Day: 4 Years Smoked: 7 e-Cigarette/Vaping Use: Never Used service: No Current occupational status: employed Current occupation: DCF worker at [employer] Cognitive needs: No Hearing needs: No Vision needs: Yes Review of Systems Const All systems reviewed & are unremarkable except as noted in HPI and below Physical Exam Const General: no acute distress, alert and awake Orientation/consciousness: patient oriented x3 HEENT Head: Yes normocephalic and Yes atraumatic Eyes EOM: EOMs intact bilaterally Resp Effort & Inspection: normal respiratory effort and able to speak in complete sentences Cardio Jugular venous distension: no JVD Skin General skin exam: turgor normal Rashes: no rashes Neuro General: patient oriented x3 Extrem Other: Right Shoulder: Incision C/D/I 20 degrees ER 90 degrees AB Flexion with AB and ER limited slightly when compared to the left side, but improved from prior Psych Appearance: grossly normal Affect: normal affect Attitude: cooperative Assessment & Plan Assessment & Plan (1) Status post arthroscopy of right shoulder: Code(s): Z98.890 - Other specified postprocedural states Plan: This is a 32 year old man S/P right shoulder capsular plication with superior labral debridement, DOS: 03/26/23. This was due to shoulder instability & a hx of dislocations. He is doing well, without pain, has d/c his sling, and has been working with PT. I recommend he continue to work with therapy and to not push through pain. He should continue to limit his ER when possible, and continue with PT. He will avoid any overhead, lifting, or behind back activities. He was given a note to remain out of work until his next appointment. He will follow up in 6 weeks. (2) Instability of right shoulder joint: Code(s): M25.311 - Other instability, right shoulder Plan Scribed for Norberto Alexander MD by Kevin Brewer, medical grade shoemaker, on 06/16/23 at 12:10 PM, EST. Coding Level of Care Code Global (91647) Diagnoses Status post arthroscopy of right shoulder Z98.890 Instability of right shoulder joint M25.311
== END 2023-06-16 12:16 | disposition home or self-care (01) ==
PROVIDERS: PCP Family Medicine; Visit Provider Orthopaedic Surgery
DX: Z98.890 Other specified postprocedural states (principal); M25.311 Other instability, right shoulder
CPT/HCPCS: 99024

== ENCOUNTER → 2023-06-16 11:51 | Outpatient (BNVA) | payer OTHER, SELFPAY | PROVIDERS: PCP Family Medicine; Visit Provider Orthopaedic Surgery ==

== ENCOUNTER 2023-07-28 12:03 | Outpatient (AMB) | payer OTHER, SELFPAY ==
--- NOTE | 2023-07-28 12:09 | MHC.OFFVIS ---
Intake Intake Visit Reasons: OV-RT SHLD CAP.PLI. 03/26/23 NE Intake Note: Dominic is a 32 year old male who presents today for a post operative appointment s/p Capsular plication of right shoulder and debridement superior labrum from 03/26/23. He remains out of work at this time. Patient reports that he is dong much better. He states that earlier this week he woke up and felt a crick in his upper back, it makes it difficult to move and is causing radiating pain to the arm. This has been ongoing for about a week now, he did mention this at physical therapy. Allergies Penicillins Allergy (Mild, Verified 07/28/23 12:11) Hives [facility] OV-RT SHLD CAP.PLI. 03/26/23 NE HPI Details Dominic is a 33 year old man who presents ~4 months S/P right shoulder capsular plication & superior labrum debridement. He says he is doing well overall and continues to work with PT & perform at-home exercises. He says most motions he is able to perform without difficulty, but some overhead activities still cause him pain and he is hesitant to move that way. He says he woke up ~1 week ago and felt a tightness & pain in his upper back. He says this is affecting his sleep and causing stiffness & radiating pain into his shoulder. He feels this is limiting him and he finds it frustrating. He wants to return to playing basketball soon. He wants to know if he can return to work. 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 He is planning to return to work tomorrow and would like a note to return with restrictions. [facility] Medical History No pertinent past medical history Surgical History (Updated 07/28/23 @ 12:12 by Tiffanie Hanley CMA) H/O shoulder surgery (03/26/23) No pertinent past surgical history Family History Maternal Grandmother Mental health disorder Social History Housing: House Patient Tobacco Use Status: Current everyday Tobacco user Cigarettes Per Day: 4 Years Smoked: 7 e-Cigarette/Vaping Use: Never Used service: No Current occupational status: employed Current occupation: DCF worker at [employer] Cognitive needs: No Hearing needs: No Vision needs: Yes Review of Systems Const All systems reviewed & are unremarkable except as noted in HPI and below Physical Exam Const General: no acute distress, alert and awake Orientation/consciousness: patient oriented x3 HEENT Head: Yes normocephalic and Yes atraumatic Eyes EOM: EOMs intact bilaterally Resp Effort & Inspection: normal respiratory effort and able to speak in complete sentences Cardio Jugular venous distension: no JVD Skin General skin exam: turgor normal Rashes: no rashes Neuro General: patient oriented x3 Extrem Other: ER to 25 deg on right. 45 on left Scapular accomodation with FF and abduction Psych Appearance: grossly normal Affect: normal affect Attitude: cooperative Assessment & Plan Assessment & Plan (1) Instability of right shoulder joint: Code(s): M25.311 - Other instability, right shoulder Plan: 4 months status post right shoulder capsular plication. He is little stiff in external rotation still and I think this is affecting his mechanics but overall doing well. I instructed him on external rotation exercises with the scapula stabilized. I wrote him a note to return to work on light duty with no lifting and driving is okay and I will see him back in 6 weeks. Plan Scribed for Norberto Alexander MD by Kevin Brewer, special forces medical sergeant, on 07/28/23 at 12:45 PM, EST. Coding Level of Care Code Est Pt Level 3 (20819) Diagnoses Instability of right shoulder joint M25.311
== END 2023-07-28 12:56 | disposition home or self-care (01) ==
PROVIDERS: PCP Family Medicine; Visit Provider Orthopaedic Surgery
DX: M25.311 Other instability, right shoulder (principal)
CPT/HCPCS: 99213

== ENCOUNTER → 2023-07-28 12:03 | Outpatient (BNVA) | payer OTHER, SELFPAY | PROVIDERS: PCP Family Medicine; Visit Provider Orthopaedic Surgery | DX: M25.311 Other instability, right shoulder (principal); Z96.611 Presence of right artificial shoulder joint | CPT/HCPCS: 99212 ==

== ENCOUNTER 2023-09-08 14:51 | Outpatient (AMB) | payer OTHER, SELFPAY ==
--- NOTE | 2023-09-08 14:53 | A.OFFVIS_ITS ---
Intake Intake Visit Reasons: OV-RT SHLD CAP.PLI. 03/26/23 NE-follow up Intake Note: Dominic is a 33 year old male who presnets Allergies Penicillins Allergy (Mild, Verified 07/28/23 12:11) Hives HPI OV-RT SHLD CAP.PLI. 03/26/23 NE-follow up HPI Details Dominic is a 33 year old man who presents ~5 months S/P right shoulder capsular plication & superior labrum debridement. He says he is doing well overall and continues to work with PT & perform at-home exercises. He has been working on ER exercises. He has returned to work on light duty, no lifting or restraining, and he says this is going well. [facility] Medical History No pertinent past medical history Surgical History (Updated 07/28/23 @ 12:12 by Tiffanie Hanley CMA) H/O shoulder surgery (03/26/23) No pertinent past surgical history Family History Maternal Grandmother Mental health disorder Social History Housing: House Patient Tobacco Use Status: Current everyday Tobacco user Cigarettes Per Day: 4 Years Smoked: 7 e-Cigarette/Vaping Use: Never Used service: No Current occupational status: employed Current occupation: DCF worker at [employer] Cognitive needs: No Hearing needs: No Vision needs: Yes Review of Systems Const All systems reviewed & are unremarkable except as noted in HPI and below Physical Exam Const General: no acute distress, alert and awake Orientation/consciousness: patient oriented x3 HEENT Head: Yes normocephalic and Yes atraumatic Eyes EOM: EOMs intact bilaterally Resp Effort & Inspection: normal respiratory effort and able to speak in complete sentences Cardio Jugular venous distension: no JVD Skin General skin exam: turgor normal Rashes: no rashes Neuro General: patient oriented x3 Extrem Other: ER to 20 deg on right with no pain 90/130/L5 Psych Appearance: grossly normal Affect: normal affect Attitude: cooperative Assessment & Plan Assessment & Plan (1) Instability of right shoulder joint: Code(s): M25.311 - Other instability, right shoulder Plan: Right shoulder instability s/p plication. He is doing well with mild tightness in ER at neutral. I recommend dynamic activity with PT and a more dynamic HEP. May return to work without restrictions. (2) Status post arthroscopy of right shoulder: Code(s): Z98.890 - Other specified postprocedural states Plan Scribed for Norberto Alexander MD by Kevin Brewer, registered medical transcriptionist, on 09/08/23 at 3:00 PM, EST. Orders: Orders PT Evaluation and Treatment Today M25.311 - Other instability, right shoulder, Z98.890 - Other specified postprocedural states Coding Level of Care Code Est Pt Level 3 (92920) Diagnoses Instability of right shoulder joint M25.311 Status post arthroscopy of right shoulder Z98.890
== END 2023-09-08 15:15 | disposition home or self-care (01) ==
PROVIDERS: PCP Family Medicine; Visit Provider Orthopaedic Surgery
DX: M25.311 Other instability, right shoulder (principal)
CPT/HCPCS: 99213

== ENCOUNTER → 2023-09-08 14:51 | Outpatient (BNVA) | payer OTHER, SELFPAY | PROVIDERS: PCP Family Medicine; Visit Provider Orthopaedic Surgery | DX: M25.311 Other instability, right shoulder (principal); Z98.890 Other specified postprocedural states | CPT/HCPCS: 99212 ==

== ENCOUNTER 2023-10-15 16:00 | Outpatient (RCR) | payer OTHER, SELFPAY ==
--- NOTE | 2023-04-03 11:55 | MHC.PT.EP ---
[facility] [place] Office [place] Office [place] Office [address] Vaishali Alcazar [address] [phone] F: [phone] F: [phone] F: [phone] F: [phone] Physical Therapy Plan of Care Date of Evaluation: Date of Surgery: 03/26/2023 Diagnosis: R shoulder capsular plication Assessment: Patient is a 32 year old male presenting to PT s/p R shoulder capsular plication w/ labral debridement on 03/26/2023. He presents today with impairments in pain, ROM, strength, posture. 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 Pt expresses long term care pharmacist goal of returning to PLOF, and is motivated to work towards this in PT. Clinical presentation today is most consistent with signs and sx associated with s/p R shoulder capsular plication w/ labral debridement on 03/26/2023 and pt will benefit from skilled PT 2 week x 8 weeks to address the following problems and impairments noted upon evaluation: pain, ROM, strength, posture. These problems limit the patient with the following functional activities: work, ADLs, reaching, lifting, basketball, caring for his kids. The prescribed treatment plan of care is medically necessary. Co-morbidities of none were identified and taken into considerations of plan of care. Pt was educated on HEP, role of PT, prognosis, POC. Frequency and Duration: The patient will be seen 2 x week x 8 weeks Short Term Goals: Pt will demonstrate improved R shoulder ROM equal B in 4 weeks. Pt will demonstrate R shoulder MMT strength at least 3+/5 in 6 weeks. Pt will demonstrate improved postural awareness by sitting with biomechanically correct posture without cues throughout session to improve overall postural function in 4 weeks. Usp Goals: Pt will demonstrate improved SPADI score by 13 points in 8 weeks for improved functional mobility. Pt will demonstrate ability to reach and lift with min to no pain in 8 weeks for improved tolerance to ADLs. Pt will demonstrate R shoulder MMT strength 5/5 in 8 weeks to prepare return to PLOF with leisure activities. Treatment Plan: Modalities to reduce pain, spasms and effusion. Manual therapy to restore motion and function. Therapeutic exercise to improve strength and flexibility. Neuromuscular re-education for posture and balance. Therapeutic activities to return to functional activities of daily living. Electronically signed by: Karen Kolb PT, DPT, ATC Please sign and return to therapist. Thank you for your referral.
--- NOTE | 2023-10-15 17:02 | MHC.PT.DC ---
[facility] [place] Office [place] Office [place] Office [address] Vaishali Alcazar [address] [phone] F: [phone] F: [phone] F: [phone] F: [phone] Physical Therapy Discharge Report Diagnosis: R shoulder capsular plication Date of Surgery: 03/26/2023 Date of Evaluation: 04/03/23 Date of Discharge: 10/15/23 Treatments to Date: 35 Cancellations to Date: 5 No Shows to Date: 1 Discharge Status: Achieved Goals Improved Function Independent with HEP Discharge Summary: 10/15/2023: He returns after working on his program on his own for a month. At this time he states he is independent and has been staying compliant. He has made good progress towards his goals meeting most of them. We reviewed how to appropriately progress his exercises as he continues to get stronger and he demonstrates understanding. At this time we have reached max benefits of PT. Skilled PT is no longer indicated. I emphasized importance of making sure he progresses himself appropriately and not too quickly as he continues with his HEP. Electronically signed by: Karen Kolb, PT, DPT, ATC Please sign and return to therapist. Thank you for your referral.
== END 2023-10-15 17:02 | disposition home or self-care (01) ==
LOC: HO.PTCHIC 16:00
PROVIDERS: PCP Family Medicine; Visit Provider Orthopaedic Surgery
DX: S43.001D Unspecified subluxation of right shoulder joint, subsequent encounter (principal); M25.311 Other instability, right shoulder
CPT/HCPCS: 97110; 97140; 97161; 97530

== ENCOUNTER 2023-10-29 15:58 | Outpatient (AMB) | payer OTHER, SELFPAY ==
[2023-10-29 16:05] VITALS: BP 122/74; PULSE 68; O2SAT 98; BMI 28.9
--- NOTE | 2023-10-29 16:05 | A.OFFPC_ITS ---
Vital Signs 10/29/23 16:05 Height 5 ft 10 in Weight 201 lb 6 oz BMI 28.9 BP 122/74 Blood Pressure Location Lt brachial Position Sitting Pulse 68 Pulse Source Pulse Oximeter Pulse Oximetry (%) 98 Oxygen Delivery Method Room Air Intake Visit Reasons: CPE+ NEEDS PHQ9/THRIVE Intake Note: Patient is here today for his physical. Allergies Penicillins Allergy (Mild, Verified 10/29/23 16:07) Hives Tobacco use date assessed: 06/09/23 HPI CPE+ NEEDS PHQ9/THRIVE HPI Details 33 y/o male presents for an extended exa m with f/u labs and health maintenance. No recent labs to review. [facility] Medical History No pertinent past medical history Surgical History H/O shoulder surgery (03/26/23) No pertinent past surgical history Family History Maternal Grandmother Mental health disorder Social History Housing: House Patient Tobacco Use Status: Current everyday Tobacco user Cigarettes Per Day: 4 Years Smoked: 7 e-Cigarette/Vaping Use: Never Used service: No Current occupational status: employed Current occupation: DCF worker at [employer] Cognitive needs: No Hearing needs: No Vision needs: Yes Questionnaire PHQ-9 Over the last 2 weeks, how often have you been bothered by any of the following problems? 1. Little interest or pleasure in doing things: not at all 2. Feeling down, depressed, or hopeless: not at all 3. Trouble falling or staying asleep, or sleeping too much: not at all 4. Feeling tired or having little energy: not at all 5. Poor appetite or overeating: not at all 6. Feeling bad about yourself - or that you are a failure or have let yourself or your family down: not at all 7. Trouble concentrating on things, such as reading the newspaper or watching television: not at all 8. Moving or speaking so slowly that other people could have noticed. Or the opposite - being so fidgety or restless that you have been moving around a lot more than usual: not at all 9. Thoughts that you would be better off or of hurting yourself in some way: not at all Total score: 0 Depression Screening Interpretation: Negative Depression Screening Done: Yes 45772 - PHQ-9 Billing: Yes Source: Developed by Drs. Srinivasan Shepard, Valorie Arthur, Mac Stoddard and colleagues, with an educational renee from [employer]. Thrive Questionnaire Date Thrive assessed: 10/29/23 I am a: Patient What is your living situation today?: I have a steady place to live Within the past 12 months, did the food you bought not last and you didn't have the money to get more?: Never true Within the past 12 months, did you worry whether your food would run out before you got money to buy more?: Never true Do you have trouble paying for medicines?: No Do you have trouble getting transportation to medical appointments?: No Do you have trouble paying your heating and electricity bill?: No Do you have trouble taking care of your child, family member or friend?: No Do you have trouble with day-to-day activities such as bathing, preparing meals, shopping, managing finances, etc.?: No Are you currently unemployed and looking for a job?: No Are you interested in more education?: No THRIVE Score: 0 JONO-7 AMB Questionnaire JONO-7 Date JONO - 7 assessed: 05/28/22 Source: Developed by Drs. Srinivasan Shepard, Valorie Arthur, Mac Stoddard and colleagues, with an educational renee from [employer]. Review of Systems Const Denies chills, Denies fatigue, Denies fever(s), Denies headache(s) and Denies weakness Eyes Denies change in vision ENT Denies dizziness, Denies headache(s), Denies hearing loss, Denies nasal congestion, Denies sinus pain, Denies sinus pressure and Denies sore throat Card Denies chest pain, Denies lightheadedness, Denies dyspnea and Denies other (palpitations) Resp Denies cough, Denies dyspnea and Denies wheezing GI Denies abdominal pain, Denies melena, Denies hematochezia, Denies change in bowel habits, Denies dyspepsia and Denies nausea Denies hematuria and Denies dysuria Musc Denies abnormal gait, Denies myalgias, Denies arthralgias, Denies numbness and Denies tingling Skin/Breast Denies rash, Denies unusual bruising and Denies wounds Neuro Denies abnormal gait, Denies dizziness, Denies headache(s), Denies memory loss, Denies numbness, Denies Sensory deficit (Neuro), Denies tingling and Denies weakness Psych Denies anxiety, Denies depression and Denies memory loss Endo Denies cold intolerance, Denies fatigue, Denies heat intolerance, Denies polydipsia and Denies polyuria Demian/Lymph Denies easy bleeding and Denies easy bruising Aller/Immun Denies wheezing Physical exam (Primary Care) Vital Signs: Last Vital Signs Pulse 68 10/29/23 16:05 BP 122/74 10/29/23 16:05 Pulse Ox 98 10/29/23 16:05 Oxygen Delivery Method Room Air 10/29/23 16:05 BMI result Body Mass Index 28.9 Tobacco/Smoking Status: Tobacco use Status Tobacco use date assessed 06/09/23 10/29/23 16:08 Patient Tobacco Use Status Current everyday Tobacco 10/29/23 16:08 Tobacco use type 05/07/23 13:50 e-Cigarette/Vaping Use Never Used 10/29/23 16:08 PHQ-9: PHQ-9 Score PHQ-9: Total score 0 10/29/23 16:10 Depression Screening Interpretation: Negative Thrive Assessment: Date of Thrive Assessment Date Thrive assessed 10/29/23 10/29/23 16:10 Const General: no acute distress, well developed, alert and awake Nutritional Appearance: well nourished Orientation/consciousness: patient oriented x3 HENMT Head: Yes normocephalic and Yes atraumatic Ears: hearing grossly normal bilaterally and TM's normal bilaterally General nose exam: Normal external nose present and Normal nares present Mouth: Normal oral and palatal mucosa present and moist mucous membranes Teeth and gingiva: dentition normal Throat: Yes posterior oropharynx normal Eyes General: appearance normal, both eyes and all related structures Pupils: Equal, round and reactive pupils present and Pupil accommodation reflex normal EOM: EOMs intact bilaterally Neck Neck: Yes normal visual inspection, Yes no lymphadenopathy and Yes trachea midline Thyroid: Thyroid normal Carotids: no bruits Lymphatic: no lymphadenopathy noted Chest Chest palpation & inspection: normal inspection of the chest Resp Effort & Inspection: normal respiratory effort Auscultation: clear to auscultation bilaterally Cardio Rate: regular rate Rhythm: regular rhythm Heart sounds: S1 normal heart sound present, S2 normal heart sound present, no gallops, no murmurs and no rubs Bruits: no abdominal aortic bruits and no carotid bruits GI Palpation (GI): No Abdominal aortic bruit present, Soft to palpation, nontender, No hepatosplenomegaly present and No Rebound tenderness present Auscultation: normal bowel sounds General: Yes no CVA tenderness Back/Spine/Pelvis Back: no CVA tenderness Cervical Spine: cervical ROM normal and No Cervical spine tenderness Thoracic/Lumbar Spine: thoraco-lumbar ROM normal, No pain with thoraco-lumbar ROM, No thoracic spinal tenderness and No lumbar spinal tenderness Skin Lesions: no lesions Rashes: no rashes Trauma: no lacerations or abrasions Wounds: no wounds Nails: normal Neuro General: patient oriented x3 Cranial nerves: Yes Equal, round and reactive pupils present Cognition (Neuro): normal cognition Gait exam (Neuro): Normal gait present Motor exam (neuro): 5/5 motor strength present throughout Sensory Exam: No Sensory deficit (Neuro) Deep tendon reflexes (DTR's): Right patellar reflex intensity grade: 2+ and Left patellar reflex intensity grade: 2+ Extrem General: Yes normal to inspection and No edema Psych Appearance: grossly normal Affect: normal affect Attitude: cooperative Thought process: Normal thought process present Assessment and Plan Assessment & Plan (1) Vision changes: Code(s): H53.9 - Unspecified visual disturbance Plan: Referred?to?Ophthalmology?at?patient?request (2) Hair loss: Code(s): L65.9 - Nonscarring hair loss, unspecified Plan: Followed?by?dermatology?and?using?minoxidil (3) Adult general medical exam: Code(s): Z00.00 - Encounter for general adult medical examination without abnormal findings Plan: 33-year-old?male?presents?for?extended?exam Exam?within?normal?limits Orders: Orders Microalbumin, Random (w Creat) Today I10 - Essential (primary) hypertension UA and rflx microscopic Today Z00.00 - Encounter for general adult medical examination without abnormal findings TSH reflex Free T4 Today Z00.00 - Encounter for general adult medical examination without abnormal findings Complete Blood Count Auto Diff Today Z00.00 - Encounter for general adult medical examination without abnormal findings CT NG by PCR Today H53.9 - Unspecified visual disturbance, Z11.3 - Encounter for screening for infections with a predominantly sexual mode of transmission HIV Ab/Ag Today H53.9 - Unspecified visual disturbance, Z11.3 - Encounter for screening for infections with a predominantly sexual mode of transmission Syphilis Screen Today H53.9 - Unspecified visual disturbance, Z11.3 - Encounter for screening for infections with a predominantly sexual mode of transmission Comprehensive [place]. Panel Fast Today Z00.00 - Encounter for general adult medical examination without abnormal findings Lipid Panel Today Z00.00 - Encounter for general adult medical examination without abnormal findings Prostate Specific Antigen Scr Today Z12.5 - Encounter for screening for malignant neoplasm of prostate Hepatitis B,C Profile Today H53.9 - Unspecified visual disturbance, Z11.3 - Encounter for screening for infections with a predominantly sexual mode of transmission Referrals Ophthalmology Referral H53.9 - Unspecified visual disturbance Coding Level of Care Code Est Pt Level 4 (29778) Diagnoses Vision changes H53.9 Hair loss L65.9 Adult general medical exam Z00.00
== END 2023-10-29 16:36 | disposition home or self-care (01) ==
PROVIDERS: PCP Family Medicine; Visit Provider Family Medicine
DX: H53.9 Unspecified visual disturbance (principal); L65.9 Nonscarring hair loss, unspecified; Z00.00 Encounter for general adult medical examination without abnormal findings
CPT/HCPCS: 99214

== ENCOUNTER 2023-11-29 10:03 | Outpatient (REF) | payer OTHER, SELFPAY ==
[2023-11-29 10:16] LABS: MANUAL DIFF FLAG NO
[2023-11-29 10:36] LABS: Basophils Percent Auto 0.6 % (0-2); Eosinophils Absolute Auto 0.1 X10*3/uL (0.0-0.4); Eosinophils Percent Auto 1.6 % (0-4); Hemoglobin 15.1 g/dl (14.0-18.0); Lymphocytes Absolute Auto 2.8 X10*3/uL (1.2-4.9); Lymphocytes Percent Auto 56.7 % (20-40); Mean Corpuscular HGB Conc 35.1 g/dl (31.0-36.0); Mean Corpuscular Hemoglobin 30.3 pg (27.0-33.0); Mean Corpuscular Volume 86.2 fL (80.0-98.0); Mean Platelet Volume 10.4 fL (9.4-12.4); Monocytes Absolute Auto 0.5 X10*3/uL (0.1-1.2); Monocytes Percent Auto 10.5 % (2-11); Neutrophils Absolute Auto 1.5 x10*3/uL (2.0-8.3); Neutrophils Percent Auto 30.6 % (45-73); Platelet Count 183 X10*3/uL (160-400); Red Blood Count 4.99 X10*6/uL (4.60-5.80); Red Cell Distribution Width 12.7 % (11.0-16.0); White Blood Count 4.9 X10*3/uL (4.8-10.8)
[2023-11-29 11:25] LABS: Alanine Aminotransferase 28 U/L (0-40); Albumin Level 4.1 g/dL (3.5-5.0); Alkaline Phosphatase 73 U/L (39-117); Anion Gap 10 (12-20); Aspartate Amino Transferase 21 U/L (5-37); Bilirubin Total 0.5 mg/dL (0.0-1.0); Blood Urea Nitrogen 11 mg/dL (9-16); Calcium 9.4 mg/dL (8.4-10.2); Carbon Dioxide 28 mmol/L (22-29); Chloride 110 mmol/L (96-108); Cholesterol 173 mg/dL (<200); Estimated Glomerular Filt Rate > 60; Glucose Fasting 93 mg/dL (60-99); HDL Cholesterol 44 mg/dL (>40); LDL Cholesterol Calculated 111 mg/dL (<100); Sodium 144 mmol/L (135-145); Total Protein 6.8 g/dL (6.5-8.0); Triglycerides 93 mg/dL (<150)
[2023-11-29 11:34] LABS: HBS Num1 52.66 mIU/mL (0-7.99); HBc Num1 0.09 S/CO (0.00-0.79); HIV AB/AG Nonreactive (Nonreactive); HIV Num 1 0.05 S/CO (0.00-0.99); Hepatitis B Core Antibody Nonreactive (Nonreactive); Hepatitis B Surface Antigen Negative (Negative); Prostate Specific Antigen Scr 0.65 ng/mL (<0.05-4.0); ~HepC Num1 0.13 S/CO (0.00-0.79); ~Hepatitis B Surface Antibody REACTIVE (Nonreactive); ~Hepatitis C Antibody Nonreactive (Nonreactive)
[2023-11-29 11:36] LABS: Syphilis Screen Nonreactive (Nonreactive)
[2023-11-29 11:39] LABS: TSH reflex Free T4 0.69 uIU/mL (0.32-4.0)
[2023-11-29 11:47] LABS: Appearance Urine Clear; Color Urine Yellow; Glucose Urine UA Negative (Negative); Leukocyte Esterase Urine Negative (Negative); Nitrite Urine Negative (Negative); Specific Gravity - Urine 1.015 (1.005-1.025); Urine Blood Negative (Negative); Urine Ketones Negative (Negative); Urine Protein Negative (Neg-Trace)
[2023-11-29 12:09] LABS: Microalbumin Urine < 5.0 mg/L
== END 2023-11-29 10:04 | disposition home or self-care (01) ==
LOC: HO.LAB 10:03
PROVIDERS: PCP Family Medicine; Visit Provider Family Medicine
DX: Z00.00 Encounter for general adult medical examination without abnormal findings (principal); H53.9 Unspecified visual disturbance; I10 Essential (primary) hypertension; Z11.3 Encounter for screening for infections with a predominantly sexual mode of transmission; Z12.5 Encounter for screening for malignant neoplasm of prostate
CPT/HCPCS: 36415; 80053; 80061; 81003; 82043; 82570; 84153; 84443; 85025; 86704; 86706; 86780; 86803; 87340; 87389

== ENCOUNTER → 2023-12-03 17:06 | Outpatient (AMB) | payer OTHER, SELFPAY ==
--- NOTE | 2023-12-03 16:55 | A.OFFPC_ITS ---
Vital Signs 12/03/23 16:56 Height 5 ft 10 in Intake Visit Reasons: follow up labs Intake Note: Patient is following up on labs, and is concerned about Monoxodil turning his hair fernandez, has not been fernandez before he used it, now all of a sudden, his hairs are fernandez after using it. Allergies Penicillins Allergy (Mild, Verified 12/03/23 16:56) Hives Tobacco use date assessed: 12/03/23 Dental Screening Dental Screen Date: 06/09/23 HPI follow up labs HPI Details 33 y/o male presents to f/u labs via tel emedicine. Labs were drawn 11/29/23. Reviewed labs with pt. Triglycerides 93. TC 173. LDL improved from 136 to 111. HDL 44. HPI Comments History of Present Illness Details Documentation assistance for Herbie Braswell MD, was provided by Misael Cunningham, Job Recruiter on 12/03/2023 5:44 PM EST. I, Dr. Braswell, have read, observed, and verified documentation. [facility] Medical History No pertinent past medical history Surgical History H/O shoulder surgery (03/26/23) No pertinent past surgical history Family History Maternal Grandmother Mental health disorder Social History Housing: House Patient Tobacco Use Status: Current everyday Tobacco user Cigarettes Per Day: 3 Years Smoked: 7 e-Cigarette/Vaping Use: Never Used service: No Current occupational status: employed Current occupation: DCF worker at [employer] Cognitive needs: No Hearing needs: No Vision needs: Yes Questionnaire Thrive Questionnaire Date Thrive assessed: 10/29/23 JONO-7 AMB Questionnaire JONO-7 Date JONO - 7 assessed: 05/28/22 Source: Developed by Drs. Srinivasan Shepard, Valorie Arthur, Mac Stoddard and colleagues, with an educational renee from [employer]. Review of Systems Const Denies chills, Denies fatigue, Denies fever(s), Denies headache(s) and Denies weakness ENT Denies dizziness and Denies headache(s) Card Denies dyspnea Resp Denies cough, Denies dyspnea, Denies wheezing and Denies other (shortness of breath) Musc Denies numbness and Denies tingling Neuro Denies dizziness, Denies headache(s), Denies numbness, Denies tingling and Denies weakness Psych Denies anxiety and Denies depression Endo Denies fatigue Aller/Immun Denies wheezing Physical exam (Primary Care) Tobacco/Smoking Status: Tobacco use Status Tobacco use date assessed 12/03/23 12/03/23 17:02 Patient Tobacco Use Status Current everyday Tobacco 12/03/23 17:02 Tobacco use type 05/07/23 13:50 e-Cigarette/Vaping Use Never Used 12/03/23 17:02 Thrive Assessment: Date of Thrive Assessment Date Thrive assessed 10/29/23 12/03/23 17:02 Telehealth Telehealth Location of provider rendering services: practice address Location of patient: address on file Patient Identification confirmed using: Name, : Yes Telehealth method: voice only Patient verbally consented to treatment: Yes Patient verbally consented to billing insurance company: Yes Patient informed of any privacy concerns related to visit: Yes Minutes spent on Phone/Video with Pt.: 6 Assessment and Plan Assessment & Plan (1) Elevated LDL cholesterol level: Code(s): E78.00 - Pure hypercholesterolemia, unspecified Plan: Lipids?appear?controlled We?can?follow?at?annual?exams (2) Elevated transaminase level: Code(s): R74.01 - Elevation of levels of liver transaminase levels Plan: ALT?had?been?elevated?but?is?back?within?normal?range Plan Patient?also?notes?some?dawson?hair?with?a?co ncurrent?use?of?minoxidil?and?is?wondering?if?this?may?be?causative. Discussed?with?patient?I?am?not?aware?of?any?evidence?that?minoxidil?causes?dawson ?hair.??He?should?discuss?this?with?his?cadastral engineer. Coding Level of Care Code Tele Est Pt Level 2 (30113) Diagnoses Elevated LDL cholesterol level E78.00 Elevated transaminase level R74.01
== END ==
PROVIDERS: PCP Family Medicine; Visit Provider Family Medicine
DX: E78.00 Pure hypercholesterolemia, unspecified (principal); R74.01 Elevation of levels of liver transaminase levels
CPT/HCPCS: 99212